=== PATIENT | male | born 2000 | race Caucasian/White ===

== ENCOUNTER 2022-08-24 16:22 | Emergency (ER) | payer OTHER, MEDICAID, SELFPAY ==
[2022-08-24] VITALS (8 sets, daily range): BP systolic 122–163; BP diastolic 66–99; PULSE 67–75; RESP 16; TEMP 36.8; O2SAT 97–98; BMI 30.2
--- NOTE | 2022-08-24 17:59 | ED.GIBLEED ---
HPI - GI Bleed <MASOOD Bueno - Last Filed: 08/24/22 20:23> General Chief complaint: GI Bleed Stated complaint: GI bleed Time Seen by Provider: 08/24/22 17:26 Source: patient Mode of arrival: Ambulatory History of Present Illness HPI Narrative: This is a 22-year-old male to female who goes by the pronoun of they and name of [place] presents to the emergency department with his significant other complaining of pain near his anus which he thinks is related to a fistula. He has history of hemorrhoids, has been using preparation H due to itch and pain, has not had any external hemorrhoids or wound but states that he is had bright red blood in his stool for the last few weeks. He has history of upper and lower endoscopy and colonoscopy in 2019 with evidence of diverticulosis without diverticulitis. States that they are concerned about a rectal fistula and they had a large amount of srinivas blood out of his rectum just prior to arrival. Denies any symptoms of illness including fever, chills, nausea vomiting. States that they are concerned about their insurance and wants to make sure that they are insured prior to any testing. Patient states he just is up primary care with a primary care provider Artem Santillan named Dr. Kendell Chung. He has not seen him yet. Related Data Previous Rx's Medication Instructions Recorded hydrocortisone acetate 25 mg 25 mg OR BEDTIME PRN hemorrhoids 08/24/22 rectal suppository #24 ea polyethylene glycol 3350 17 17 g PO DAILY PRN for soft stool 08/24/22 gram/dose oral powder #510 grams Allergies Allergy/AdvReac Type Severity Reaction Status Date / Time hydromorphone Allergy Anaphylaxis Verified 08/24/22 18:28 Review of Systems <MASOOD Bueno - Last Filed: 08/24/22 20:23> Review of Systems ROS Unobtainable: All systems reviewed & are unremarkable except as noted in HPI and below Patient History <MASOOD Bueno - Last Filed: 08/24/22 20:23> Social History Smoking Status: Never smoker Smoking Status: Never smoker alcohol intake frequency: 0-2 drinks per day Substance Use Type: marijuana Exam <MASOOD Bueno - Last Filed: 08/24/22 20:23> Narrative Exam Narrative: Reviewed vitals signs and nursing notes. General: Pleasant, sitting upright, in no acute distress, well groomed, afebrile GI: abdomen soft, nondistended, without CVA tenderness bilaterally. /rectal exam: Patient has rectal tone, perirectal abscess verses fistula present and tender, no surrounding erythema or drainage, entire area around anus is tender, no fluctuance but firm and tender to palpation, could be internal hemorrhoid. Hemoccult-positive, MSK: moves all extremities, no weakness, normal tone, ambulatory without deficit Skin: brisk capillary refill, without rash or wound Neuro: normal speech and cognition, A&O x3 Initial Vital Signs Initial Vital Signs: Vital Signs Temperature 98.3 F 08/24/22 16:28 Pulse Rate 70 08/24/22 16:28 Respiratory Rate 16 08/24/22 16:28 Blood Pressure 163/99 H 08/24/22 16:28 Pulse Oximetry 98 08/24/22 16:28 Oxygen Delivery Method Room Air 08/24/22 16:28 <Devin Stinson DO - Last Filed: 08/24/22 18:36> Initial Vital Signs Initial Vital Signs: Vital Signs Temperature 98.3 F 08/24/22 16:28 Pulse Rate 70 08/24/22 16:28 Respiratory Rate 16 08/24/22 16:28 Blood Pressure 163/99 H 08/24/22 16:28 Pulse Oximetry 98 08/24/22 16:28 Oxygen Delivery Method Room Air 08/24/22 16:28 Course <MASOOD Bueno - Last Filed: 08/24/22 20:23> Orders Ordered: ED Orders 08/24/22 18:02 CT pelvis w con Stat 08/24/22 18:20 CBC Auto Diff [Complete Blood Count AUTO DIFF] Stat CMP [Comprehensive Metabolic Panel] Stat CRP [C-Reactive Protein Quant] Stat Discontinued Medications Hydrocortisone (Hydrocortisone 25 Mg Supp) 25 mg OR NOW ONE Stop: 08/24/22 18:03 Last Admin: 08/24/22 19:28 Dose: 25 mg Documented By: SB Ketorolac Tromethamine (Ketorolac 30 Mg/Ml Vial) 15 mg IV NOW ONE Stop: 08/24/22 18:03 Last Admin: 08/24/22 18:30 Dose: 15 mg Documented By: DEMOND Vital Signs Vital signs: Vital Signs - 8 hr 08/24/22 16:28 08/24/22 17:32 08/24/22 17:33 Temperature 98.3 F Pulse Rate 70 75 Respiratory Rate 16 Blood Pressure 163/99 H 139/88 Pulse Oximetry 98 98 Oxygen Delivery Method Room Air 08/24/22 17:33 08/24/22 18:00 08/24/22 18:00 Temperature Pulse Rate 71 67 Respiratory Rate Blood Pressure 148/97 H Pulse Oximetry 98 97 Oxygen Delivery Method 08/24/22 18:30 08/24/22 18:30 08/24/22 19:00 Temperature Pulse Rate 70 68 Respiratory Rate Blood Pressure 136/89 Pulse Oximetry 98 98 Oxygen Delivery Method 08/24/22 19:30 Temperature Pulse Rate 72 Respiratory Rate Blood Pressure Pulse Oximetry 98 Oxygen Delivery Method <Devin Stinson, DO - Last Filed: 08/24/22 18:36> Orders Ordered: ED Orders 08/24/22 18:02 CT pelvis w con Stat 08/24/22 18:20 CBC Auto Diff [Complete Blood Count AUTO DIFF] Stat CMP [Comprehensive Metabolic Panel] Stat CRP [C-Reactive Protein Quant] Stat Discontinued Medications Hydrocortisone (Hydrocortisone 25 Mg Supp) 25 mg OR NOW ONE Stop: 08/24/22 18:03 Last Admin: 08/24/22 19:28 Dose: 25 mg Documented By: NANDO Ketorolac Tromethamine (Ketorolac 30 Mg/Ml Vial) 15 mg IV NOW ONE Stop: 08/24/22 18:03 Last Admin: 08/24/22 18:30 Dose: 15 mg Documented By: DEMOND Vital Signs Vital signs: Vital Signs - 8 hr 08/24/22 16:28 08/24/22 17:32 08/24/22 17:33 Temperature 98.3 F Pulse Rate 70 75 Respiratory Rate 16 Blood Pressure 163/99 H 139/88 Pulse Oximetry 98 98 Oxygen Delivery Method Room Air 08/24/22 17:33 08/24/22 18:00 08/24/22 18:00 Temperature Pulse Rate 71 67 Respiratory Rate Blood Pressure 148/97 H Pulse Oximetry 98 97 Oxygen Delivery Method 08/24/22 18:30 08/24/22 18:30 08/24/22 19:00 Temperature Pulse Rate 70 68 Respiratory Rate Blood Pressure 136/89 Pulse Oximetry 98 98 Oxygen Delivery Method 08/24/22 19:30 Temperature Pulse Rate 72 Respiratory Rate Blood Pressure Pulse Oximetry 98 Oxygen Delivery Method MDM - GI Bleed <Lore Ang [facility] - Last Filed: 08/24/22 20:23> Lab Data 08/24/22 18:20 08/24/22 18:20 Labs: Lab Results 08/24/22 08/24/22 Range/Units 18:20 18:20 WBC 10.2 (4.5-11.0) X10^3/uL RBC 5.09 (4.5-5.9) X10^6/uL Hgb 14.3 (13.5-17.5) g/dL Hct 41.6 (41-53) % MCV 81.7 (80-100) fL MCH 28.1 (26-34) PG MCHC 34.4 (30-36) % RDW 12.7 (11.6-14.8) % Plt Count 228 (150-400) X10^3/uL Neut % (Auto) 60.9 (50-75) % Lymph % (Auto) 29.0 (25-40) % [place] % (Auto) 7.0 (3-14) % Eos % (Auto) 2.4 (2-4) % Baso % (Auto) 0.7 (0-2) % Neut # (Auto) 6200 (5467-8953) /uL Lymph # (Auto) 3000 (8747-6502) /uL [place] # (Auto) 700 (0-900) /uL Eos # (Auto) 200 (0-450) /uL Baso # (Auto) 100 (0-100) /uL Sodium 137 (137-145) mmol/L Potassium 4.0 (3.4-5.1) mmol/L Chloride 105 (98-107) mmol/L Carbon Dioxide 24 (22-32) mmol/L BUN 15 (9-20) mg/dL Creatinine 0.72 (0.66-1.25) mg/dL Estimated GFR > 60 (>60) mL/min BUN/Creatinine Ratio 20.8 (6-22) Glucose 93 (70-100) mg/dL Calcium 8.8 (8.4-10.2) mg/dL Total Bilirubin 0.5 (0.2-1.3) mg/dL AST 33 (17-59) IU/L ALT 31 (<50) IU/L Alkaline Phosphatase 101 (38-126) U/L C-Reactive Protein 0.6 (<1.0) mg/dL Total Protein 7.8 (6.3-8.2) g/dL Albumin 4.2 (3.5-5.0) g/dL Globulin 3.6 (1.7-4.1) g/dL Albumin/Globulin Ratio 1.2 (1.0-2.8) MDM Narrative Medical decision making narrative: Chief Complaint: pain near anus Multiple etiologies for patient's symptoms considered including, but not limited to: Proctocolitis, internal hemorrhoid, rectal abscess, pilonidal cyst, fistula, diverticulitis, irritable bowel syndrome, prostatitis, I have independently reviewed the patient's vital signs and nursing notes as well as prior records if available. Pertinent lab findings reviewed:CMP and CBC are unremarkable, no leukocytosis, without anemia, no elevated liver enzymes or CRP Pertinent Imaging reviewed: CT pelvis with contrast is still pending at 19:45 Course of care: Patient was treated with a hydrocortisone suppository and toradol. awaiting CT report CT came back showing prominent hemorrhoidal vessels in the rectum without other acute abnormality. This is comparable to my hand. Most likely internal hemorrhoids causing acute bleeding and patient has had history of constipation. Recommended MiraLax daily, twice a day until soft stools, hydration with clear liquid diet and progression of diet as tolerated. Patient will follow-up with gastroenterology for colonoscopy, he is never had 1. Encourage patient to return for new or worsening symptoms, he does not have evidence of anemia, without major blood loss, and no visible fluid collection or abscess on CT. He does not have systemic symptoms of illness, has not had a fever chills, no nausea vomiting. Social considerations that may affect disposition: none Questions are addressed and there is agreement with the plan and for follow-up. Patient is appropriate for outpatient management. <Devin Stinson, - Last Filed: 08/24/22 18:36> Lab Data Labs: Lab Results 08/24/22 08/24/22 Range/Units 18:20 18:20 WBC 10.2 (4.5-11.0) X10^3/uL RBC 5.09 (4.5-5.9) X10^6/uL Hgb 14.3 (13.5-17.5) g/dL Hct 41.6 (41-53) % MCV 81.7 (80-100) fL MCH 28.1 (26-34) PG MCHC 34.4 (30-36) % RDW 12.7 (11.6-14.8) % Plt Count 228 (150-400) X10^3/uL Neut % (Auto) 60.9 (50-75) % Lymph % (Auto) 29.0 (25-40) % [place] % (Auto) 7.0 (3-14) % Eos % (Auto) 2.4 (2-4) % Baso % (Auto) 0.7 (0-2) % Neut # (Auto) 6200 (0596-2872) /uL Lymph # (Auto) 3000 (1201-8055) /uL [place] # (Auto) 700 (0-900) /uL Eos # (Auto) 200 (0-450) /uL Baso # (Auto) 100 (0-100) /uL Sodium 137 (137-145) mmol/L Potassium 4.0 (3.4-5.1) mmol/L Chloride 105 (98-107) mmol/L Carbon Dioxide 24 (22-32) mmol/L BUN 15 (9-20) mg/dL Creatinine 0.72 (0.66-1.25) mg/dL Estimated GFR > 60 (>60) mL/min BUN/Creatinine Ratio 20.8 (6-22) Glucose 93 (70-100) mg/dL Calcium 8.8 (8.4-10.2) mg/dL Total Bilirubin 0.5 (0.2-1.3) mg/dL AST 33 (17-59) IU/L ALT 31 (<50) IU/L Alkaline Phosphatase 101 (38-126) U/L C-Reactive Protein 0.6 (<1.0) mg/dL Total Protein 7.8 (6.3-8.2) g/dL Albumin 4.2 (3.5-5.0) g/dL Globulin 3.6 (1.7-4.1) g/dL Albumin/Globulin Ratio 1.2 (1.0-2.8) Discharge Plan Departure Patient Disposition: Home Clinical Impression: Hemorrhoids, internal, with bleeding, Pain in rectum, Bright red rectal bleeding Instructions: Hemorrhoids, Gastrointestinal Bleeding Activity Restrictions/Additional Instructions: *You have been diagnosed with prominent hemorrhoidal vessels near the anus, sorry for your symptoms, this must be very uncomfortable. It was a pleasure to meet you in your follow-up should be helpful. Please get on top of MiraLax daily, bearing down to have a bowel movement worsens the vessel congestion and can increase chances of bleeding so please ensure that you are having soft stools daily. They should not be painful. Use a suppository nightly for as long as you have rectal pain. Please follow-up with gastroenterology for an evaluation. You can have these internal hemorrhoids taken out and let them know that you are having recurrent symptoms related to this. I am sorry for your symptoms but it was nice that you came in for a dressing them. No visible abscess or fluid collection concerning for infection today. You should be able to call and schedule an appointment with [facility] for follow-up. Let them know that you have had CT scan and have had recurring problems of rectal bleeding related to hemorrhoids. *What to do: *Please continue to take your regular medications as directed. [x ] New medication prescriptions sent to your pharmacy: [ [facility]] [ ] New medication written as a paper prescription [ ] No new medications given *Please follow up with your primary care provider in 2-3 days, call for an appointment. Let them know you were seen in the Emergency Department and that we asked that you be seen for follow-up. We will electronically transmit a record of today's note if your PCP is in our system *If you do not have a primary care provider please contact [phone] to establish care with one of the [facility] primary care providers. *Return to Emergency Department if you should have any new, worsening, or concerning symptoms, such as [fever greater than 101F, chills, worsening pain, persistent vomiting or other bothersome symptoms]. Prescriptions: New hydrocortisone acetate 25 mg suppository 25 mg OR BEDTIME PRN (Reason: hemorrhoids) Qty: 24 0RF polyethylene glycol 3350 17 gram/dose powder 17 g PO DAILY PRN (Reason: for soft stool) Qty: 510 0RF Referrals: [facility] [Provider Group] (for colonoscopy) Kendell Chung [Non-Staff] - Stand Alone Forms: Patient Portal/API <Devin Stinson, DO - Last Filed: 08/24/22 18:36> Cosign ED Attending Cosignature Attestation: Dr Stinson Co-Sign Statement: I was available for consultation during this patient's emergency department visit. This chart is signed by myself for administrative purposes only. I did not have direct contact with this patient during this visit. They were seen independently by the APC.
--- NOTE | 2022-08-24 18:02 | DI.CT.S_ITS ---
PROCEDURE: CT PELVIS W CON INDICATIONS: Concern for rectal fistula/abscess, internal hemorrhoid TECHNIQUE: After the administration of intravenous contrast, 5 mm thick sections acquired from the iliac crests to the symphysis. 5 mm coronal and sagittal reformats were acquired. For radiation dose reduction, the following was used: automated exposure control, adjustment of mA and/or kV according to patient size. COMPARISON: None. FINDINGS: Image quality: Excellent. Peritoneum and bowel: Bowel loops demonstrate normal wall thickness and caliber. No free fluid or air. Genitourinary: Bladder wall thickness is normal. Nodes and vessels: No iliac, pelvic, or inguinal adenopathy by size criteria. Iliac vessels demonstrate normal size and enhancement. Prominent perianal hemorrhoidal vessels are noted. Bones: No suspicious bony lesions. Miscellaneous: No inguinal hernias. IMPRESSION: 1. No acute abnormality of the pelvis. No fistula is identified, however this would be difficult to visualize on CT without rectal contrast. 2. Prominent hemorrhoidal vessels are noted in the anus. Dictated by: Stephen Arreola M.D. on 08/24/2022 at 19:52 Approved by: Stephen Arreola M.D. on 08/24/2022 at 19:55
[2022-08-24] MEDS: KETOROLAC 30 MG/ML VIAL 15 MG IV (18:30)
[2022-08-24 18:34] LABS: Add Manual Diff / Slide Review NO; Basophils Absolute Auto 100 /uL (0-100); Basophils Percent Auto 0.7 % (0-2); Eosinophils Absolute Auto 200 /uL (0-450); Eosinophils Percent Auto 2.4 % (2-4); Hematocrit 41.6 % (41-53); Hemoglobin 14.3 g/dL (13.5-17.5); Lymphocytes Absolute Auto 3000 /uL (1100-4500); Mean Corpuscular HGB Conc 34.4 % (30-36); Mean Corpuscular Hemoglobin 28.1 PG (26-34); Mean Corpuscular Volume 81.7 fL (80-100); Monocytes Absolute Auto 700 /uL (0-900); Neutrophils Absolute Auto 6200 /uL (1500-7000); Neutrophils Percent Auto 60.9 % (50-75); Platelet Count 228 X10^3/uL (150-400); Red Blood Cell Count 5.09 X10^6/uL (4.5-5.9); Red Cell Distribution Width 12.7 % (11.6-14.8); White Blood Cell Count 10.2 X10^3/uL (4.5-11.0)
[2022-08-24 18:53] LABS: Alanine Aminotransferase 31 IU/L (<50); Albumin 4.2 g/dL (3.5-5.0); Albumin Globulin Ratio 1.2 (1.0-2.8); Alkaline Phosphatase 101 U/L (38-126); Aspartate Aminotransferase 33 IU/L (17-59); BUN Creatinine Ratio 20.8 (6-22); Bilirubin Total 0.5 mg/dL (0.2-1.3); Blood Urea Nitrogen 15 mg/dL (9-20); C-Reactive Protein Quant 0.6 mg/dL (<1.0); Calcium 8.8 mg/dL (8.4-10.2); Carbon Dioxide 24 mmol/L (22-32); Chloride 105 mmol/L (98-107); Estimated Glomerular Filt Rate > 60 mL/min (>60); Globulin 3.6 g/dL (1.7-4.1); Glucose 93 mg/dL (70-100); HEMOLYSIS < 15 (0-50); Sodium 137 mmol/L (137-145); Total Protein 7.8 g/dL (6.3-8.2)
[2022-08-24] MEDS: HYDROCORTISONE 25 MG SUPP PR (19:28)
== END 2022-08-24 20:45 | disposition home or self-care (01) ==
PROVIDERS: Emergency Provider Nurse Practitioner Critical Care Medicine
DX: K64.8 Other hemorrhoids (principal); K62.89 Other specified diseases of anus and rectum; K62.5 Hemorrhage of anus and rectum
CPT/HCPCS: 36415; 72193; 80053; 85025; 86140; 96374; 99284; J1885; Q9967